=== PATIENT | female | born 1965 | race Caucasian/White ===

== ENCOUNTER → 2020-02-24 | Outpatient (CLI) | payer MEDICARE ==
[~2020-02-24] MED LIST: BISA-42 PO; CALC500T30 PO; CETI-161 PO; CLONAZEPAM1 MG PO; CYCL10TA2 PO; LEVO75TA5 PO; MELO7.5T29 PO; PSEU30TA PO; TURM500C4 PO; ZOLP5TAB5 PO
== END | disposition home or self-care (01) ==
LOC: LAB 12:34
PROVIDERS: ATTEND Internal Medicine Gastroenterology
DX: Z20.828 Contact with and (suspected) exposure to other viral communicable diseases (principal)
CPT/HCPCS: U0003-CS

== ENCOUNTER → 2020-02-27 | Day surgery (SDC) | payer MEDICARE ==
[~2020-02-27] MED LIST changes: +IV RINGERS,LACTATED 1000ML 1,000 ML IV SCH; +PROPOFOL 10 MG/ML (20ML) VIAL. IV ONE
[2020-02-27 10:15] VITALS: BP 158/99
== END | disposition home or self-care (01) ==
LOC: ENDOS 08:10 → EDUNIT# 09:00
PROVIDERS: ATTEND Internal Medicine Gastroenterology
DX: R19.4 Change in bowel habit (principal); K64.0 First degree hemorrhoids; Z87.891 Personal history of nicotine dependence; Z79.899 Other long term (current) drug therapy; Z88.8 Allergy status to other drugs, medicaments and biological substances
CPT/HCPCS: 45378; J2704